=== PATIENT | female | born 1960 | race Caucasian/White ===

== ENCOUNTER → 2020-12-18 13:19 | Outpatient (CLI) | payer OTHER, SELFPAY ==
--- NOTE | ~2020-12-18 | MM_ITS ---
EXAMINATION: MM screening [facility] BI w jasmyn HISTORY: Screening TECHNIQUE: Craniocaudal and mediolateral oblique 3-D tomosynthesis images were obtained and synthetic 2-D images were generated. CAD analysis was submitted and interpreted. COMPARISON: 09/16/2018 BREAST PARENCHYMAL COMPOSITION: The breasts are extremely dense, which lowers the sensitivity of mamm ography. FINDINGS: There are developing masses in the lateral aspect of the right breast on CC view. There are developing clustered indeterminate left breast calcifications, upper outer quadrant. IMPRESSION: 1. Developing right breast masses and left breast calcifications. 2. Additional mammographic views and possible breast ultrasound are recommended. BI-RADS Category 0: Incomplete: Needs additional imaging evaluation. Reviewed, dictated and finalized at location A. IMPRESSION: 1. Developing right breast masses and left breast calcifications. 2. Additional mammographic views and possible breast ultrasound are recommended . BI-RADS Category 0: Incomplete: Needs additional imaging evaluation.
--- NOTE | ~2020-12-18 | DEXA_ITS ---
Bone Density Report Name: Xochitl Luz Age: 60 Sex: Female Ethnicity: White Date of : 1960 Indication: postmenopausal; screening for osteoporosis; height loss; Referring Provider: YENNIFER MARION Study: Bone densitometry was performed. Exam Date: December 18, 2020 Accession number: [id number] Bone Density: Region BMD T-score Z-score Classification AP Spine (L1-L4) 0.879 -1.5 -0.1 Osteopenia Femoral Neck (Left) 0.693 -1.4 -0.1 Osteopenia Total Hip (Left) 0.772 -1.4 -0.4 Osteopenia Femoral Neck (Right) 0.727 -1.1 0.2 Osteopenia Total Hip (Right) 0.789 -1.3 -0.3 Osteopenia Total Hip Mean 0.781 -1.4 -0.4 Osteopenia World Health Organization criteria for BMD impression classify patients as: Normal (T-score at or above -1.0), Osteopenia (T-score between -1.0 and -2.5), or Osteoporosis (T-score at or below -2.5). 10-year Fracture Risk(1): Major Osteoporotic Fracture 6.8% Hip Fracture 0.6% Reported Risk Factors: [place] (), Neck BMD=0.693, BMI=18.9 (1) FRAX(R) Version 3.08. Fracture probability calculated for an untreated patient. Fracture probability may be lower if the patient has received treatment. Clinical Information Provided by Patient: Has used the following medications: Vitamin D, MTV, SYNTHROID Patient maximum height was 68.0 Drinks caffeinated beverages Onset of menses at age 15 Number of children 2 Missed period for more than 6 months in a row Impression: The patient has low bone mass, based on the Total Spine T-score. The patient has an estimated ten-year risk of hip fracture of 0.6% and an estimated ten-year risk of major fracture of 6.8%, based on the WHO FRAX algorithm. Discussion: BONE DENSITY IS LOW AT ONE OR MORE SKELETAL SITES. This patient's lowest T-score is low at one or more skeletal sites. It meets the World Health Organization's (WHO) criteria for ?low bone mass? (T-score between -1.0 and -2.5). The patient's 10-year risk of fracture as calculated by FRAX is less than the threshold where pharmacological therapy is recommended by the National Osteoporosis Foundation (NOF). However, all treatment decisions require clinical judgment and consideration of individual patient factors, including patient preferences, comorbidities, previous drug use, risk factors not captured in the FRAX model (e.g., frailty, falls, vitamin D deficiency, increased bone turnover, interval significant decline in bone density) and possible under or overestimation of fracture risk by FRAX. The patient should follow a healthful lifestyle (good nutrition with adequate calcium and vitamin D, and appropriate weight-bearing exercise). Follow-Up: Consider repeating this study in 2 to 3 years to reassess this patient's status, or sooner if there is some new clinical indication. Reported
== END ==
PROVIDERS: PCP Emergency Medicine; Visit Provider Emergency Medicine
DX: Z12.31 Encounter for screening mammogram for malignant neoplasm of breast (principal); Z78.0 Asymptomatic menopausal state; R92.8 Other abnormal and inconclusive findings on diagnostic imaging of breast; M85.88 Other specified disorders of bone density and structure, other site; M85.852 Other specified disorders of bone density and structure, left thigh; M85.851 Other specified disorders of bone density and structure, right thigh
CPT/HCPCS: 77063; 77067; 77080

== ENCOUNTER 2021-02-13 13:02 | Outpatient (CLI) | payer OTHER, SELFPAY ==
--- NOTE | ~2021-02-13 | MMUS_ITS ---
EXAMINATION: MM diagnostic mammo BI, US breast RT limited HISTORY: Left breast calcifications and possible right breast masses on screening mammogram TECHNIQUE: Additional 3-D tomosynthesis images of the breasts were performed and synthetic 2-D images were generated. Magnification views of the left breast are also obtained. CAD analysis was submitted and interpreted. High resolution limited right breast ultrasound was performed. COMPARISON: 12/18/2020, 09/16/2018 BREAST PARENCHYMAL COMPOSITION: The breasts are extremely dense, which lowers the sensitivity of mamm ography. FINDINGS: MAMMOGRAPHIC FINDINGS: Right breast: There appear be two adjacent obscured 5 mm masses in the middle/posterior third of the outer breast at the 9:00 location. Left breast: There are grouped calcifications in the posterior third of the upper outer quadrant of t he breast at the 3:00 location 7 cm from the nipple which appear to be round in morphology but are to o small for definitive characterization. ULTRASOUND: No sonographic correlate is identified for the mammographic finding in question in the right breast. IMPRESSION: 1. Probably benign bilateral breast findings as described above. 2. Recommend 6 month follow-up bilateral diagnostic mammogram and possible ultrasound. BI-RADS category 3, probably benign findings. Reviewed, dictated and finalized at location A. IMPRESSION: 1. Probably benign bilateral breast findings as described above. 2. Recommend 6 month follow-up bilateral diagnostic mammogram and possible ultr asound. BI-RADS category 3, probably benign findings.
== END 2021-02-13 13:03 | disposition home or self-care (01) ==
LOC: ANHIMG 13:06
PROVIDERS: PCP Emergency Medicine; Visit Provider Emergency Medicine
DX: N63.15 Unspecified lump in the right breast, overlapping quadrants (principal)
CPT/HCPCS: 76642; 77066

== ENCOUNTER 2021-12-10 14:04 | Outpatient (CLI) | payer OTHER, SELFPAY ==
[2021-12-10 16:56] LABS: Free T4 Free Thyroxine 1.11 ng/mL (0.78-2.19)
[2021-12-13 06:59] LABS: Triiodothyronine T3 Free 2.6 pg/mL (2.3-4.2)
== END 2021-12-10 14:05 | disposition home or self-care (01) ==
PROVIDERS: PCP Emergency Medicine; Visit Provider Internal Medicine Endocrinology, Diabetes & Metabolism
DX: E03.9 Hypothyroidism, unspecified (principal); E04.9 Nontoxic goiter, unspecified; R79.89 Other specified abnormal findings of blood chemistry; E55.9 Vitamin D deficiency, unspecified
CPT/HCPCS: 36415; 84439; 84443; 84481

== ENCOUNTER 2022-08-05 00:54 | Day surgery (SDC) | payer OTHER, SELFPAY ==
[2022-07-29 10:13] VITALS: BMI 18.6
[2022-08-05 08:26] VITALS: BP 136/62; PULSE 65; RESP 19; TEMP 36.3; O2SAT 98
[2022-08-05] MEDS: LACTATED RINGERS 1,000 ML 150 ML IV CONT (08:36)
--- NOTE | 2022-08-05 09:01 | WPDANESEPPF ---
Anes - Initial Pre Proc Eval Procedure: Operation Date: 08/05/22 09:45 Proposed Procedures p Screening Colonoscopy - Pee Lawson MD Date/Time: 08/05/22 09:01 Surgeon: Pee Lawson MD Pre Op Diagnosis: neoplasm screening Patient Data Age: 62 Gender: F Height: 1.7 m Weight: 53 kg Last Vital Signs Temp 97.3 F L 08/05/22 08:26 Pulse 65 08/05/22 08:26 Resp 19 08/05/22 08:26 BP 136/62 08/05/22 08:26 Pulse Ox 98 08/05/22 08:26 O2 Del Method Room Air 08/05/22 08:26 Allergies Allergy/AdvReac Type Severity Reaction Status Date / Time No Known Allergies Allergy Verified 08/05/22 08:25 Home Medications Medication Instructions Recorded Confirmed Type Synthroid 75 mcg tablet 75 mcg PO DAILY #90 tabs 05/26/22 07/29/22 Rx (levothyroxine) alendronate 70 mg tablet (Fosamax) 70 mg PO WEEKLY #12 tabs 05/26/22 07/29/22 Rx gabapentin 300 mg capsule See Rx Instructions .Route 05/26/22 07/29/22 Rx .COMPLEX #450 caps alprazolam 0.25 mg tablet (Xanax) 0.25 mg PO BID PRN anxiety #30 tabs 07/15/22 07/29/22 Rx amitriptyline 100 mg tablet 100 mg PO HS 07/29/22 07/29/22 History cholecalciferol (vitamin D3) 50 2,000 unit PO DAILY 07/29/22 07/29/22 History mcg (2,000 unit) tablet (Vitamin D3) docusate sodium 50 mg capsule 50 mg PO DAILY PRN Constipation 07/29/22 07/29/22 History (Colace Clear) donepezil 10 mg tablet (Aricept) 10 mg PO DAILY 07/29/22 07/29/22 History meloxicam 15 mg tablet 15 mg PO DAILY 07/29/22 07/29/22 History ondansetron HCl 4 mg tablet 4 mg PO TID PRN Nausea 07/29/22 07/29/22 History sertraline 100 mg tablet 100 mg PO DAILY 10/26/22 10/26/22 History Patient hx anesthesia problems: none Family hx anesthesia problems: none Results Review: All pre-operative results and documents have been reviewed as part of the pre-operative evaluation. [facility] Past Medical History Medical History Anxiety Arthritis Depression Fibromyalgia Headache, migraine Hypothyroidism (acquired) Primary insomnia Primary osteoarthritis, unspecified site Thyroid disease Vitamin D deficiency Family History Family History Other Alcoholism COPD (chronic obstructive pulmonary disease) Depression Heart disease Hypertension Thyroid disease Social History Social History Smoking status: Former smoker Tobacco type: cigarettes Smoking end date: 10/04/97 Alcohol intake: never Substance use: never Substance use type: does not use Living arrangements: with family Spiritual care concerns: No Anes - Eval Final PreProcedure Day of Procedure 08/05/22 09:01 Patient weight: normal Heart: regular rate and rhythm Lungs: clear to auscultation Airway: Mallampati scale class II Neurological: alert and oriented Last oral intake: >/= 8 hours ASA classification: II Emergent: no Anesthetic plan: proceed Anesthesia type and monitoring: general GIVS and standard monitoring Results Review: All pre-operative results and documents have been reviewed as part of the pre-operative evaluation. Informed Consent: The patient's anesthetic plan and its attendant risks and benefits were discussed with the patient/family/POA. Questions were solicited and answers provided to the satisfaction of the patient/family/POA.
--- NOTE | 2022-08-05 09:19 | PM.HPGS ---
History of Present Illness History of Present Illness Consent: Risks, benefits, and alternatives have been discussed and questions answered. Patient agrees to proceed with procedure. Chief complaint: neoplasm screening Narrative: Xochitl Luz is a 62 year old female here for screening colonoscopy, last one over 10 years ago Review of Systems Constitutional: Constitutional: Denies headache(s) and Denies weakness Eyes: Eyes: Denies blurry vision ENT: Reports Normal hearing present, Denies headache(s) and Denies neck pain Cardiovascular: Cardiovascular: Denies chest pain and Denies dyspnea Respiratory: Respiratory: Denies dyspnea Gastrointestinal: Gastrointestinal: Reports no additional gastrointestinal complaints Genitourinary: Genitourinary: Denies dysuria Musculoskeletal: Musculoskeletal: Denies neck pain Integumentary/Breasts: Skin/Breast: Denies dry skin Neurologic: Reports Normal hearing present, Denies headache(s) and Denies weakness Psychiatric: Psychiatric: Denies anxiety Endocrine: Endocrine: Denies change in body appearance Hematologic/Lymphatic: Hematologic/Lymphatic: Denies easy bleeding Allergic/Immunologic: Allergic/Immunologic: Denies urticaria PMFSH Past Medical History Medical History (Updated 08/05/22 @ 09:19 by Pee Lawson MD) Anxiety Arthritis Colon cancer screening Depression Fibromyalgia Headache, migraine Hypothyroidism (acquired) Primary insomnia Primary osteoarthritis, unspecified site Thyroid disease Vitamin D deficiency Family History Family History Other Alcoholism COPD (chronic obstructive pulmonary disease) Depression Heart disease Hypertension Thyroid disease Social History Social History Smoking status: Former smoker Tobacco type: cigarettes Smoking end date: 10/04/97 Alcohol intake: never Substance use: never Substance use type: does not use Living arrangements: with family Spiritual care concerns: No Meds Home Medications and Allergies Home Medications Medication Instructions Recorded Confirmed Type Synthroid 75 mcg tablet 75 mcg PO DAILY #90 tabs 05/26/22 07/29/22 Rx (levothyroxine) alendronate 70 mg tablet (Fosamax) 70 mg PO WEEKLY #12 tabs 05/26/22 07/29/22 Rx gabapentin 300 mg capsule See Rx Instructions .Route 05/26/22 07/29/22 Rx .COMPLEX #450 caps alprazolam 0.25 mg tablet (Xanax) 0.25 mg PO BID PRN anxiety #30 tabs 07/15/22 07/29/22 Rx amitriptyline 100 mg tablet 100 mg PO HS 07/29/22 07/29/22 History cholecalciferol (vitamin D3) 50 2,000 unit PO DAILY 07/29/22 07/29/22 History mcg (2,000 unit) tablet (Vitamin D3) docusate sodium 50 mg capsule 50 mg PO DAILY PRN Constipation 07/29/22 07/29/22 History (Colace Clear) donepezil 10 mg tablet (Aricept) 10 mg PO DAILY 07/29/22 07/29/22 History meloxicam 15 mg tablet 15 mg PO DAILY 07/29/22 07/29/22 History ondansetron HCl 4 mg tablet 4 mg PO TID PRN Nausea 07/29/22 07/29/22 History sertraline 100 mg tablet 100 mg PO DAILY 07/29/22 07/29/22 History Allergies Allergy/AdvReac Type Severity Reaction Status Date / Time No Known Allergies Allergy Verified 08/05/22 08:25 Vital Signs Vital Signs - 24 hr 08/05/22 08:26 Temperature 97.3 F L Pulse Rate 65 Respiratory Rate 19 Blood Pressure 136/62 Pulse Oximetry 98 Oxygen Delivery Room Air Exam Const: General: comfortable and no acute distress HENMT: Face/Nose/Sinus: Normal nares present Eyes: General: appearance normal, both eyes and all related structures Neck: Neck: no JVD Resp: Auscultation: clear to auscultation bilaterally Cardio: Rate: regular rate Rhythm: regular rhythm GI: Inspection: non-distended GI Palp: Yes Soft to palpation Skin: General skin exam: normal color Neuro: General: gait normal Speech: normal speech Extrem: Gene
[2022-08-05 09:53] VITALS: BP 107/65; PULSE 66; RESP 16; O2SAT 100
[2022-08-05 10:03] VITALS: BP 109/68; PULSE 66; RESP 14; O2SAT 100
[2022-08-05 10:13] VITALS: BP 115/65; PULSE 66; RESP 14; O2SAT 100
--- NOTE | 2022-08-05 10:33 | SUR.PHASEII ---
Patient confused and asking the same questions over again. Spoke at length with her laundry route driver Charissa about patients memory and safety today. States she will stay with her today.
== END 2022-08-05 10:33 | disposition home or self-care (01) ==
PROVIDERS: PCP Emergency Medicine; Visit Provider Internal Medicine Gastroenterology
PROC: 0DJD8ZZ Inspection of Lower Intestinal Tract, Via Natural or Artificial Opening Endoscopic (ICD-10-PCS; CPT 45378; principal; 2022-08-05 09:45)
DX: Z12.11 Encounter for screening for malignant neoplasm of colon (principal); D12.5 Benign neoplasm of sigmoid colon; D12.3 Benign neoplasm of transverse colon; E03.9 Hypothyroidism, unspecified; E55.9 Vitamin D deficiency, unspecified; M79.7 Fibromyalgia; F41.9 Anxiety disorder, unspecified; F32.A Depression, unspecified; Z87.891 Personal history of nicotine dependence
CPT/HCPCS: 45380; 45385; 88305; 88342; J2704; J7120

== ENCOUNTER 2022-08-17 12:46 | Outpatient (CLI) | payer OTHER, SELFPAY ==
--- NOTE | ~2022-08-17 | MM_ITS ---
EXAMINATION: MM diagnostic [facility] BI w jasmyn HISTORY: Follow-up breast asymmetries TECHNIQUE: Additional 3-D tomosynthesis images of the breasts were performed and synthetic 2-D images were generated. CAD analysis was submitted and interpreted. COMPARISON: Comparison to multiple prior studies sequentially, with oldest reviewed study dated 09/03. BREAST PARENCHYMAL COMPOSITION: The breasts are extremely dense, which lowers the sensitivity of mamm ography FINDINGS: There are no suspicious masses, calcifications or architectural distortion in the right evan ast to suggest malignancy. IMPRESSION: 1. No mammographic evidence for malignancy in either breast. 2. Routine yearly screening mammogram and regular clinical breast examination are recommended. BI-RADS Category 1: Negative Reviewed, dictated and finalized at location A. ICATIONS SUPPORT ENGINEER IMPRESSION: 1. No mammographic evidence for malignancy in either breast. 2. Routine yearly screening mammogram and regular clinical breast examination a re recommended. BI-RADS Category 1: Negative
== END 2022-08-17 12:47 | disposition home or self-care (01) ==
LOC: ANHIMG 12:47
PROVIDERS: PCP Emergency Medicine; Visit Provider Emergency Medicine
DX: R92.8 Other abnormal and inconclusive findings on diagnostic imaging of breast (principal)
CPT/HCPCS: 77062; 77066; G0279

== ENCOUNTER 2023-10-11 15:10 | Outpatient (CLI) | payer OTHER, SELFPAY ==
--- NOTE | ~2023-10-11 | XR_ITS ---
XR hip BI 2V w AP pelvis DATE: 10/11/2023 15:31 INDICATION: Right hip pain for one month. No known injury. TECHNIQUE: AP pelvis. AP and lateral views of each hip. COMPARISON: None FINDINGS: Prominent degenerative disc disease at L4-5 and L5-S1, mild at L3-4. Normal alignment at the pubic symphysis and sacroiliac joints. There is mild symmetric bilateral hip joint space narrowing. No fracture or dislocation, avascular ne crosis or bone destruction of either hip is detected. IMPRESSION: Mild bilateral hip osteoarthritis Prominent degenerative disc disease at L4-5 and L5-S1, mild at L3-4 Reviewed, dictated and finalized at location B. 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
== END 2023-10-11 15:11 | disposition home or self-care (01) ==
PROVIDERS: PCP Emergency Medicine; Visit Provider Emergency Medicine
DX: M51.36 Other intervertebral disc degeneration, lumbar region (principal); M51.37 Other intervertebral disc degeneration, lumbosacral region
CPT/HCPCS: 73521